=== PATIENT | female | born 1985 | race Hispanic/Latino ===

== ENCOUNTER 2024-05-03 01:24 | Emergency (ER) | payer SELFPAY ==
[~2024-05-03] VITALS: Ht 162.6 cm; Wt 157.1 kg
[2024-05-03 01:38] VITALS: PULSE 86; RESP 16; TEMP 98.5
[2024-05-03] MEDS ORDERED: PREDNISONE20 MG PO (04:33)
[2024-05-03] MEDS ORDERED: KETOROLAC TROME10 MG PO (04:33)
[2024-05-03 06:19] VITALS: BP 146/100; O2SAT 100
== END 2024-05-03 04:45 | disposition home or self-care (01) ==
LOC: ER 01:28
DX: M79.604 Pain in right leg (principal); M54.41 Lumbago with sciatica, right side; E66.01 Morbid (severe) obesity due to excess calories
CPT/HCPCS: 72100; 81025; 99283